=== PATIENT | female | born 1965 | race Caucasian/White ===

== ENCOUNTER 2021-07-23 12:20 | Emergency (ER) | payer OTHER, SELFPAY ==
[2021-07-23 12:21] VITALS: BP 137/75; PULSE 84; RESP 16; TEMP 35.6; O2SAT 93; BMI 28.6
--- NOTE | 2021-07-23 13:47 | ED.VIS.LOWEX ---
HPI History of Present Illness Chief Complaint: Lower Extremity Injury Informant: patient Onset/Context/Timing Onset: Days Context: Gradual Onset Current Severity: Moderate Maximum Severity: Moderate Narrative Narrative: Patient presents due to redness and warmth over the lateral right ankle. Patient has 2 avulsion fractures in her right foot, one of the talus and one at the navicular. This was diagnosed 8 days ago. Patient was seen by Ortho this past week and placed in a walking boot and has crutches. Patient states a few days ago she noted some erythema along the lateral malleolus of her ankle. She thought it was just rubbing on the boot and wore thickened socks to try to protect it. Continue to worsen. She was seen in urgent care today and then sent to the emergency room. She denies fever or chills. [facility] Medical History Fracture Fracture (healed) treatment follow-up Home Medications [id number] [Creon] 1 tab PO TID 02/28/15 [History Last Taken 02/27/15] loratadine [Allergy Relief (loratadine)] 10 mg PO QHS 02/28/15 [History Last Taken 02/27/15] calcium carbonate [Caltrate 600] 600 mg PO DAILY@0800 03/01/15 [History Last Taken 02/28/15] multivitamin with folic acid [Thera] 1 tab PO DAILY 03/01/15 [History Last Taken 02/28/15] Morphine [Morphine Ir] 15 mg PO Q4H PRN PRN #20 tab 03/04/15 [Rx Last Taken Unknown] doxycycline monohydrate 100 mg PO BID #20 cap 07/23/21 [Rx Last Taken Unknown] Allergy/AdvReac Type Severity Reaction Status Date / Time No Known Allergies Allergy Verified 07/23/21 12:21 Social History Smoking Status: Never smoker ROS ROS ED Constitutional Constitutional ED: Denies chills or fever(s) Eyes Eyes: Denies change in vision ENT ENT ED: Denies sore throat Cardiovascular Cardiovascular: Denies chest pain Respiratory/Chest Respiratory/Chest: Denies cough or dyspnea Gastrointestinal Gastrointestinal: Denies abdominal pain, nausea or vomiting Musculoskeletal Musculoskeletal: Reports arthralgias; Denies back pain Integumentary Reports other Details: Ecchymosis and redness to right lower extremity Neurologic Neurologic: Denies headache(s) or weakness Psychiatric Psychiatric: Denies anxiety or depression Allergic/Immunologic Allergic/Immunologic ED: Denies urticaria EXAM Physical Exam Const Vital Signs: 07/23/21 12:21 Temperature 96.1 F L Temperature Source Temporal Pulse Rate 84 Respiratory Rate 16 Blood Pressure 137/75 H Blood Pressure Mean 95 Pulse Ox 93 Oxygen Delivery Method Room Air Positive well nourished and well developed General Appearance ED: well developed HEENT Reports normocephalic and head/scalp atraumatic Eyes PERRL and EOMs intact bilaterally Neck supple Chest Wall inspection of chest normal and palpation of chest normal Resp normal respiratory effort and clear to auscultation bilaterally Cardio regular rate and regular rhythm GI normal to inspection, nondistended, normoactive bowel sounds Palpation: soft Extremity Extremity Narrative: Ecchymosis noted to the lateral right foot. Mild tenderness over the proximal tarsal bones. Round area of erythema measuring approximately 3- 1/2 cm in diameter noted over the lateral malleolus. No calf tenderness or edema. Strong distal pulses. Neuro oriented x3 Sensorium / Orientation: alert Psych mental status grossly normal Skin no rashes or lesions noted MDM MDM MDM Narrative Medical decision making narrative: Patient's exam findings are consistent with an area of cellulitis. No obvious open skin lesion noted. Area of erythema is outlined. Patient is placed on doxycycline. Prior to discharge patient and family member at bedside raise concern about possible blood clot. Apparently that was what urgent care was concerned about. They are seen by me for evaluation after 1 PM on a Saturday afternoon when I do not have ultrasound available. Plan was to order the ultrasound to be performed tomorrow. In my clinical opinion I do not believe this represents an acute DVT. Just prior to discharge I was notified by nursing staff that the patient was not wanting to register to be charged for today's visit because we were unable to provide the test that they were sent in for. She called [facility] and apparently they were going to order the ultrasound and antibiotics for her tomorrow. Discharge Plan Triage Chief Complaint: Lower Extremity Injury ED Provider: Marion Mansfield Dx/Rx/DC Orders Clinical Impression: Cellulitis Instructions: ED Cellulitis Prescriptions: New doxycycline monohydrate 100 MG capsule 100 mg PO BID Qty: 20 RF: 0 No Action loratadine [Allergy Relief (loratadine)] 10 MG tablet 10 mg PO QHS RF: 0 [id number] [Creon] 1 EACH capsule,delayed release(DR/EC) 1 tab PO TID RF: 0 calcium carbonate [Caltrate 600] 600 MG tablet 600 mg PO DAILY@0800 RF: 0 multivitamin with folic acid [Thera] 1 TABLET tablet 1 tab PO DAILY RF: 0 Morphine [Morphine Ir] 15 MG tablet 15 mg PO Q4H PRN PRN (Reason: Abdominal Pain) Qty: 20 RF: 0 Other Ambulatory Orders: Venous Duplex US, Unilateral (Routine) Facility: [facility] - Location: [facility] Ordered By: Dr. Marion Mansfield Primary Care Provider: Shabbir Echeverria III Referrals: Shabbir Echeverria III, MD [Primary Care Provider] - Disposition Disposition: Home, Self Care Discharge Date/Time: 07/23/21 14:28
--- NOTE | 2021-07-23 14:25 | ED.RN ---
pt sent over for ultrasound (not available) by the time she came to ED room from the waiting room. would like order canceled for ultrasound and antibiotic. will go back to urgent care (place of employment [facility]) to get orders there. pt understanding at ma. ED physician made aware.
== END 2021-07-23 14:28 | disposition home or self-care (01) ==
LOC: ED 14:25
PROVIDERS: Emergency Provider Emergency Medicine; PCP Family Medicine
DX: L03.115 Cellulitis of right lower limb (principal)
CPT/HCPCS: 99282